=== PATIENT | female | born 1950 ===

== ENCOUNTER 2020-05-08 16:10 | Inpatient (IN) | payer MEDICARE, OTHER ==
[~2020-05-08 16:10] MED LIST: Iopamidol-370 76% 500 ML 1 ML ONE
[2020-05-08 16:41] LABS: Hemoglobin 13.9 g/dL (12.0-16.0); Mean Corpuscular HGB CONC 33.1 g/dL (32.0-36.0); Mean Corpuscular Hemoglobin 31.2 pg (27.0-31.0); Mean Corpuscular Volume 94.1 fL (78.0-98.0); Mean Platelet Volume 9.2 fL (7.4-10.4); Platelet Count 175 thou/uL (130-400); RBC Distribution Width 12.9 % (11.5-14.5); Red Blood Cell (RBC) Count 4.47 mill/uL (4.20-5.40); White Blood Cell (WBC) Count 13.9 thou/uL (4.8-10.8)
[2020-05-08 16:46] LABS: Prothrombin Time 13.8 sec (12.0-14.7)
[2020-05-08 16:47] LABS: PTT 26.5 sec (22.9-36.1)
[2020-05-08 16:56] LABS: Band 9 % (5-11); Eosinophils 1 % (0-10); Lymphocytes 12 % (21-51); MDiff Complete? YES; Monocytes 5 % (0-10); Neutrophil 73 % (42-75); Platelet Morphology Comment Appears Adequate; RBC Morphology Normal
[2020-05-08] MEDS ORDERED: Morphine 4 MG/ML VIAL ONE ×2 (17:10→19:13)
[2020-05-08] MEDS ORDERED: TETANUS AND DIPHTHERIA TOX/PF 0.5 ML DISP.SYRIN ONE (17:10)
[2020-05-08 17:34] LABS: ALT (SGPT) 16 U/L (8-55); AST (SGOT) 35 U/L (5-34); Albumin 3.9 g/dL (3.4-4.8); Alkaline Phosphatase 73 U/L (40-110); Anion Gap 16 mmol/L (10-20); BUN (Urea Nitrogen) 10 mg/dL (9.8-20.1); Bilirubin, Total 0.4 mg/dL (0.2-1.2); CK (CPK) 185 U/L (29-168); Calc. Creatinine Clearance 0 mL/min (70-130); Calcium 8.8 mg/dL (7.8-10.44); Carbon Dioxide 24 mmol/L (23-31); Chloride 105 mmol/L (98-107); Globulin 2.7 g/dL (2.4-3.5); Glucose 140 mg/dL (80-115); Lipase 113 U/L (8-78); Potassium 4.5 mmol/L (3.5-5.1); Protein, Total 6.6 g/dL (5.8-8.1); Sodium 140 mmol/L (136-145)
[2020-05-08] MEDS ORDERED: Dextrose 50% Abboject 50 ML SYRINGE SLOW IVP PRN (18:12)
[2020-05-08] MEDS ORDERED: Ondansetron PF 4 MG/2 ML Vial IVP PRN (18:12)
[2020-05-08] MEDS ORDERED: Dextrose 5% in Water 1,000 ML IV PRN (18:12)
[2020-05-08] MEDS ORDERED: hydrALAZINE 20 MG/ML VIAL SLOW IVP PRN (18:12)
[2020-05-08] MEDS ORDERED: Senokot 8.6 MG TAB PO PRN (18:17)
[2020-05-08] MEDS ORDERED: Acetaminophen 325 MG TAB PO PRN (19:04)
[2020-05-08] MEDS ORDERED: Morphine 2 MG/ML VIAL SLOW IVP SCH (20:00)
[2020-05-08] MEDS ORDERED: Lactated Ringer's 1,000 ML IV SCH (20:00)
[2020-05-08] MEDS: Gabapentin 300 MG CAP PO SCH (20:28)
[2020-05-08] MEDS ORDERED: Cyclobenzaprine 10 MG TAB PO SCH (21:00)
[2020-05-08] MEDS: Ibuprofen 200 MG TAB PO SCH (21:15)
[2020-05-08 21:19] LABS: Lactic Acid 2.1 mmol/L (0.5-2.2)
[2020-05-08 23:22] VITALS: BMI 35.9
[2020-05-09] MEDS: Clindamycin/D5W 600 MG in Premix Bag 1 BAG IVPB SCH ×4 (00:15→17:48)
[2020-05-09] MEDS: Ibuprofen 200 MG TAB PO SCH ×2 (01:31→04:39)
[2020-05-09 06:10] LABS: Hemoglobin 11.7 g/dL (12.0-16.0); Mean Corpuscular HGB CONC 32.3 g/dL (32.0-36.0); Mean Corpuscular Hemoglobin 30.6 pg (27.0-31.0); Mean Corpuscular Volume 94.8 fL (78.0-98.0); Platelet Count 143 thou/uL (130-400); RBC Distribution Width 12.8 % (11.5-14.5); Red Blood Cell (RBC) Count 3.84 mill/uL (4.20-5.40); White Blood Cell (WBC) Count 8.2 thou/uL (4.8-10.8)
[2020-05-09 06:21] LABS: ALT (SGPT) 16 U/L (8-55); AST (SGOT) 31 U/L (5-34); Albumin 3.1 g/dL (3.4-4.8); Alkaline Phosphatase 47 U/L (40-110); Anion Gap 11 mmol/L (10-20); BUN (Urea Nitrogen) 18 mg/dL (9.8-20.1); Bilirubin, Direct 0.3 mg/dL (0.1-0.3); Bilirubin, Total 0.7 mg/dL (0.2-1.2); Calc. Creatinine Clearance 114 mL/min (70-130); Carbon Dioxide 23 mmol/L (23-31); Chloride 106 mmol/L (98-107); Glucose 158 mg/dL (80-115); Lactic Acid 1.6 mmol/L (0.5-2.2); Magnesium 1.7 mg/dL (1.6-2.6); Phosphorus 3.6 mg/dL (2.3-4.7); Protein, Total 5.1 g/dL (5.8-8.1); Sodium 136 mmol/L (136-145)
[2020-05-09 06:37] LABS: Band 16 % (5-11); Lymphocytes 1 % (21-51); MDiff Complete? YES; Monocytes 11 % (0-10); Neutrophil 63 % (42-75); Platelet Morphology Comment Appears Adequate; Reactive Lymphocytes 9 % (0-10)
[2020-05-09] MEDS ORDERED: Lactated Ringer's 1,000 ML IV SCH (06:51)
[2020-05-09] MEDS ORDERED: Ketorolac Tromethamine 30 MG/ML VIAL IVP SCH (07:45)
[2020-05-09] MEDS ORDERED: traMADol HCl 50 MG TAB PO PRN ×2 (07:48)
[2020-05-09] MEDS ORDERED: Cyclobenzaprine 10 MG TAB PO PRN (07:48)
[2020-05-09] MEDS: Gabapentin 300 MG CAP PO SCH ×3 (08:38→20:15)
[2020-05-09] MEDS: Acetaminophen 325 MG TAB PO SCH ×3 (08:38→20:14)
[2020-05-09] MEDS: Lactated Ringer's 1,000 ML IV SCH ×2 (11:16→15:49)
[2020-05-09] MEDS ORDERED: Lidocaine 1% (PF) 30 ML VIAL SC SCH (11:45)
[2020-05-09] MEDS ORDERED: CEFAZOLIN 2 GM in Premix Bag 1 BAG IVPB SCH (14:30)
[2020-05-09] MEDS: Ibuprofen 600 MG TAB PO SCH (15:20)
[2020-05-09] MEDS: Carvedilol 6.25 MG TAB PO SCH (20:16)
[2020-05-09] MEDS: Simvastatin 10 MG TAB PO SCH (20:16)
[2020-05-10] MEDS: Clindamycin/D5W 600 MG in Premix Bag 1 BAG IVPB SCH ×4 (00:23→17:20)
[2020-05-10] MEDS: Lactated Ringer's 1,000 ML IV SCH ×2 (00:24→08:44)
[2020-05-10] MEDS: Ibuprofen 600 MG TAB PO SCH ×3 (01:24→15:49)
[2020-05-10] MEDS: Acetaminophen 325 MG TAB PO SCH ×4 (03:20→19:49)
[2020-05-10] MEDS: Carvedilol 6.25 MG TAB PO SCH ×2 (08:47→19:48)
[2020-05-10] MEDS: Gabapentin 300 MG CAP PO SCH ×3 (08:48→19:49)
[2020-05-10] MEDS: Senokot 8.6 MG TAB PO SCH ×2 (10:29→19:48)
[2020-05-10] MEDS: Enoxaparin Sodium 40 MG/0.4 ML SYRINGE SC SCH (10:30)
[2020-05-10] MEDS ORDERED: traMADol HCl 50 MG TAB PO PRN (10:46)
[2020-05-10] MEDS: traMADol HCl 50 MG TAB PO SCH ×2 (11:37→17:20)
[2020-05-10] MEDS: Polyethylene Glycol 3350 17 GM Packet PO SCH (17:18)
[2020-05-10 17:49] LABS: SARS-CoV-2 PCR NAA for Saliva Not Detected (NotDetected)
[2020-05-10] MEDS: Simvastatin 10 MG TAB PO SCH (19:47)
[2020-05-10] MEDS ORDERED: Senokot 8.6 MG TAB PO SCH (21:00)
[2020-05-11] MEDS: Ibuprofen 600 MG TAB PO SCH ×4 (00:35→23:45)
[2020-05-11] MEDS: Clindamycin/D5W 600 MG in Premix Bag 1 BAG IVPB SCH ×5 (00:35→23:44)
[2020-05-11] MEDS: traMADol HCl 50 MG TAB PO SCH ×5 (00:36→23:45)
[2020-05-11] MEDS: Acetaminophen 325 MG TAB PO SCH ×4 (03:45→20:31)
[2020-05-11] MEDS: Gabapentin 300 MG CAP PO SCH ×3 (08:35→20:30)
[2020-05-11] MEDS: Senokot 8.6 MG TAB PO SCH ×2 (08:35→20:32)
[2020-05-11] MEDS: Carvedilol 6.25 MG TAB PO SCH ×2 (08:35→20:31)
[2020-05-11] MEDS: Polyethylene Glycol 3350 17 GM Packet PO SCH (08:36)
[2020-05-11] MEDS: Enoxaparin Sodium 40 MG/0.4 ML SYRINGE SC SCH (08:36)
[2020-05-11] MEDS: Simvastatin 10 MG TAB PO SCH (20:31)
[2020-05-12] MEDS: Acetaminophen 325 MG TAB PO SCH ×4 (02:31→20:01)
[2020-05-12] MEDS: traMADol HCl 50 MG TAB PO SCH ×2 (05:38→20:01)
[2020-05-12] MEDS: Polyethylene Glycol 3350 17 GM Packet PO SCH (08:56)
[2020-05-12] MEDS: Enoxaparin Sodium 40 MG/0.4 ML SYRINGE SC SCH (08:56)
[2020-05-12] MEDS: Ibuprofen 600 MG TAB PO SCH ×3 (08:56→23:11)
[2020-05-12] MEDS: Carvedilol 6.25 MG TAB PO SCH ×2 (08:57→20:02)
[2020-05-12] MEDS: Senokot 8.6 MG TAB PO SCH ×2 (08:57→20:02)
[2020-05-12] MEDS: Gabapentin 300 MG CAP PO SCH (08:57)
[2020-05-12] MEDS: Gabapentin 100 MG CAP PO SCH ×2 (16:07→20:01)
[2020-05-12] MEDS: Simvastatin 10 MG TAB PO SCH (20:02)
[2020-05-12] MEDS: metFORMIN 500 MG TAB PO SCH (20:02)
[2020-05-13] MEDS: Acetaminophen 325 MG TAB PO SCH ×3 (02:55→12:24)
[2020-05-13] MEDS: Ibuprofen 600 MG TAB PO SCH ×2 (09:24→12:25)
[2020-05-13] MEDS: Carvedilol 6.25 MG TAB PO SCH (09:24)
[2020-05-13] MEDS: Gabapentin 100 MG CAP PO SCH ×2 (09:25→12:24)
[2020-05-13] MEDS: metFORMIN 500 MG TAB PO SCH (09:25)
[2020-05-13] MEDS: Enoxaparin Sodium 40 MG/0.4 ML SYRINGE SC SCH (09:25)
[2020-05-13] MEDS: traMADol HCl 50 MG TAB PO SCH (09:26)
[2020-05-13] MEDS: Senokot 8.6 MG TAB PO SCH (09:26)
[2020-05-13] MEDS: Polyethylene Glycol 3350 17 GM Packet PO SCH (09:26)
[2020-05-13 11:19] VITALS: BP 155/81; TEMP 97.4
== END 2020-05-13 15:15 | disposition home or self-care (01) | DRG 200 ==
LOC: ERS 16:10 → SURG A 16:51
PROVIDERS: ADMIT Surgery; ATTEND Surgery
PROC: 0W9B30Z Drainage of Left Pleural Cavity with Drainage Device, Percutaneous Approach (ICD-10-PCS; principal; 2020-05-09)
DX: S27.2XXA Traumatic hemopneumothorax, initial encounter (principal); S22.42XA Multiple fractures of ribs, left side, initial encounter for closed fracture; S27.329A Contusion of lung, unspecified, initial encounter; J90 Pleural effusion, not elsewhere classified; J98.11 Atelectasis; S02.2XXA Fracture of nasal bones, initial encounter for closed fracture; E78.5 Hyperlipidemia, unspecified; I10 Essential (primary) hypertension; V69.9XXA Occupant (driver) (passenger) of heavy transport vehicle injured in unspecified traffic accident, initial encounter; Z79.899 Other long term (current) drug therapy; Z20.822 Contact with and (suspected) exposure to COVID-19
CPT/HCPCS: 36415; 70450; 70486; 71045; 71260; 72125; 74177; 80048; 80053; 80076; 82550; 83605; 83690; 83735; 84100; 84484; 85007; 85025; 85027; 85610; 85730; 86850; 86900; 86901; 87635; 90471; 90714; 93005; 94640; 96374; 96376; G0390; J0690; J1650; J1885; J2001; J2270; J3490; J7620; Q9967; U0003; U0005